=== PATIENT | female | born 1965 | race Caucasian/White ===

== ENCOUNTER 2020-06-19 06:43 | Outpatient (CLI) | payer OTHER, SELFPAY ==
[2020-06-19 07:37] LABS: Hematocrit 38.4 % (37.0-47.0); Hemoglobin 12.4 g/dL (12.0-15.0); Mean Corpuscular HGB Conc 32.3 g/dl (32-36); Mean Corpuscular Hemoglobin 27.4 pg (26-34); Mean Corpuscular Volume 84.8 fl (80-100); Mean Platelet Volume 10.3 fl (7.4-10.4); Platelet Count Result 407 k/mm3 (150-375); Red Blood Count 4.53 M/mm3 (4.2-5.4); Red Cell Distribution Width 14.1 % (11.5-14.5); White Blood Count 7.5 K/mm3 (4.5-10.0)
[2020-06-19 07:41] LABS: Alanine Aminotransferase 18 U/L (4-35); Albumin Level 3.8 g/dL (3.5-5.1); Alkaline Phosphatase 75 U/L (38-126); Anion Gap 5 mmol/L (8-16); Aspartate Amino Transferase 28 U/L (14-36); Bilirubin,Total 0.5 mg/dL (0.2-1.3); Blood Urea Nitrogen 11 mg/dL (7-17); Carbon Dioxide 34 mmol/L (22-30); Chloride 103 mmol/L (98-107); Cholesterol 228 mg/dL (0-200); Estimated Glomerular Filt Rate > 60; Glucose 104 mg/dL (65-105); HDL Direct 41 mg/dL; Potassium 4.6 mmol/L (3.4-5.0); Sodium 142 mmol/L (137-145); Triglycerides 151 mg/dL (<150)
[2020-06-19 07:52] LABS: LDL Cholesterol Direct 142 mg/dL
[2020-06-19 08:21] LABS: Creatinine Urine 63.1 mg/dL
[2020-06-19 08:25] LABS: MALB Creatinine Ratio 22.5 mg/g (0-30); Microalbumin Urine Random 14.2 mg/L (0-16.7)
[2020-06-19 08:50] LABS: Hemoglobin A1C 7.7 % (<5.7)
[2020-06-19 08:51] LABS: Vitamin D 25 Hydroxy < 12.8 ng/mL
[2020-06-19 23:08] LABS: Free T4 Free Thyroxine Reflex 0.64 ng/dL (0.78-2.19)
== END 2020-06-19 06:44 | disposition home or self-care (01) ==
LOC: ANHLAB 06:47
PROVIDERS: PCP Family Medicine; Visit Provider Family Medicine
DX: E11.9 Type 2 diabetes mellitus without complications (principal); R53.83 Other fatigue; E03.9 Hypothyroidism, unspecified; E78.2 Mixed hyperlipidemia; E55.9 Vitamin D deficiency, unspecified
CPT/HCPCS: 36415; 80053; 80061; 82043; 82306; 83036; 84439; 84443; 85027

== ENCOUNTER 2020-10-15 02:38 | Emergency (ER) | payer OTHER, SELFPAY ==
[2020-10-15 02:38] VITALS: BP 190/78; PULSE 83; RESP 14; TEMP 36.6; O2SAT 100
[2020-10-15 02:45] LABS: Glucose Point of Care 77 (65-105)
--- NOTE | 2020-10-15 03:09 | PC.NURSE ---
Pt. provided w/ sandwich an orange juice.
--- NOTE | 2020-10-15 03:16 | PC.NURSE ---
RN asked Pt. for urine sample. Pt. states she cannot go at this time.
[2020-10-15 03:21] LABS: Basophils Percent Auto 0.5 % (0.2-1.2); Eosinophils Absolute Auto 0.1 K/mm3 (0-0.3); Eosinophils Percent Auto 1.4 % (0-4.4); Hematocrit 40.7 % (37.0-47.0); Hemoglobin 13.5 g/dL (12.0-15.0); Immature Granulocyte Absolute 0.03 K/mm3 (0.00-0.031); Immature Granulocyte Percent A 0.4 % (0-0.5); Lymphocytes Absolute Auto 1.58 K/mm3 (0.9-3.2); Lymphocytes Percent Auto 18.7 % (18.3-44.2); Mean Corpuscular HGB Conc 33.2 g/dl (32-36); Mean Corpuscular Hemoglobin 27.8 pg (26-34); Mean Corpuscular Volume 83.9 fl (80-100); Monocytes Absolute Auto 0.7 K/mm3 (0.1-0.6); Monocytes Percent Auto 8.5 % (2.6-8.5); Neutrophils Percent Auto 70.5 % (45.5-73.1); Platelet Count Result 266 k/mm3 (150-375); Red Blood Count 4.85 M/mm3 (4.2-5.4); Red Cell Distribution Width 13.1 % (11.5-14.5); White Blood Count 8.4 K/mm3 (4.5-10.0)
[2020-10-15 03:34] LABS: Anion Gap 6 mmol/L (8-16); Blood Urea Nitrogen 16 mg/dL (7-17); Calcium 9.3 mg/dL (8.4-10.2); Carbon Dioxide 28 mmol/L (22-30); Chloride 106 mmol/L (98-107); Estimated Glomerular Filt Rate > 60; Glucose 71 mg/dL (65-105); Potassium 4.1 mmol/L (3.4-5.0); Sodium 140 mmol/L (137-145)
--- NOTE | 2020-10-15 03:42 | ED.GENADULT ---
HPI - General Adult General Chief complaint: Recheck/Abnormal Lab/Rx Stated complaint: hypoglycemia Time Seen by Provider: 10/15/20 02:59 History of Present Illness HPI narrative: Patient a 55-year-old female who presents emerged from with chief complaint of hypoglycemia. Patient has history of insulin-dependent diabetes and this evening woke up and had low blood sugars. Patient was seen by EMS and they were unable to get peripheral access in the field due to this they transported the patient to the emergency department while giving the patient glucagon in route. Patient currently is awake alert in no acute distress and is back to her neurological baseline. Patient reports she has been having episodes of hypoglycemia particularly at night whenever she is sleeping. Patient reports she has seen her primary care physician and they have reduced her dose of insulin recently. Related Data Home Medications Medication Instructions Recorded Confirmed atorvastatin 40 mg tablet 40 mg PO DAILY 03/12/20 losartan 50 mg tablet 50 mg PO DAILY 03/12/20 Allergies Allergy/AdvReac Type Severity Reaction Status Date / Time Penicillins Allergy Severe Rash Verified 10/15/20 03:16 Review of Systems Review of Systems: Narrative: A 10 system review of systems was completed on the patient and is negative except for what is stated in the HPI. Nursing and ancillary documentation was reviewed. [facility] [place] Past Medical History Medical History Allergic rhinitis Diabetes type 1, uncontrolled Diabetic neuropathy associated with type 1 diabetes mellitus Endometriosis determined by laparoscopy Hyperlipidemia due to type 1 diabetes mellitus Surgical History Surgical History History of partial thyroidectomy History of right oophorectomy Family History Family History Mother Hypertension Hyperlipidemia Father Heart disease Hypertension Hyperlipidemia Grandparent Heart disease Diabetes mellitus Hypertension Hyperlipidemia Glaucoma FH: cataracts Social History Social History Gender identity (if verbalized by the patient): Female Exam Narrative: Exam Narrative: GENERAL: Well-appearing, well-nourished, and in no acute distress. HEAD: Normocephalic, atraumatic. EYES: PERRLA and EOMI. ENT: Nares clear, no rhinorrhea or epistaxis. Mucous membranes moist. NECK: Supple. CHEST: Clear to auscultation. No respiratory distress. HEART: Regular rate and rhythm. No murmur heard. Normal peripheral pulses. ABDOMEN: Soft, nontender, nondistended, normal active bowel sounds. EXTREMITIES: Normal range of motion. No edema. SKIN: Warm, dry, no rash. NEURO: No focal deficits. Alert and oriented x3. PSYCH: Normal mood and affect. Course Course Emergency Course: Patient has been observed in the emergency department she was also given a snack tray and the patient has maintained euglycemia. Vital Signs Vital signs: Vital Signs Temperature 36.6 C 10/15/20 02:38 Pulse Rate 83 10/15/20 02:38 Respiratory Rate 14 10/15/20 02:38 Blood Pressure 190/78 H 10/15/20 02:38 Pulse Oximetry 100 10/15/20 02:38 Temperature 36.6 C 10/15/20 02:38 Pulse Rate 83 10/15/20 02:38 Respiratory Rate 14 10/15/20 02:38 Blood Pressure 190/78 H 10/15/20 02:38 Pulse Oximetry 100 10/15/20 02:38 Medical Decision Making Vital Signs Vital Signs: Vital Signs Temperature 36.6 C 10/15/20 02:38 Pulse Rate 83 10/15/20 02:38 Respiratory Rate 14 10/15/20 02:38 Blood Pressure 190/78 H 10/15/20 02:38 Pulse Oximetry 100 10/15/20 02:38 Temperature 36.6 C 10/15/20 02:38 Pulse Rate 83 10/15/20 02:38 Respiratory Rate 14 10/15/20 02:38 Blood Pressure 190/78 H 10/15/20 02:3
[2020-10-15 03:52] LABS: Glucose Point of Care 215 (65-105)
[2020-10-15 04:23] LABS: Add Urine Microscopic? YES; Appearance Urine Cloudy (Clear); Bacteria Urine Trace /hpf; Bilirubin Urine Negative (Negative); Blood Urine Negative (Negative); Color Urine Straw (Yellow); Glucose Urine UA Negative (Negative); Ketones Urine 1+ mg/dL (Negative); Leukocyte Esterase Ur Trace LEU/UL (Negative); Mucus Urine Rare /lpf; Nitrate Urine Negative (Negative); Protein Urine Negative (Negative); Specific Grav Ur 1.011 (1.001-1.035); Squamous Epithelial Cell Urine Few /hpf (Few); Urobilinogen Urine Negative mg/dL (<2.0)
[2020-10-15 05:00] VITALS: BP 123/87; PULSE 65; RESP 20; O2SAT 97
[2020-10-15] MEDS: CEPHALEXIN 500 MG CAPSULE PO (05:00)
== END 2020-10-15 05:00 | disposition home or self-care (01) ==
PROVIDERS: Emergency Provider Emergency Medicine; PCP Family Medicine
DX: E10.649 Type 1 diabetes mellitus with hypoglycemia without coma (principal); N39.0 Urinary tract infection, site not specified; E10.40 Type 1 diabetes mellitus with diabetic neuropathy, unspecified; N80.9 Endometriosis, unspecified; E78.5 Hyperlipidemia, unspecified; E89.0 Postprocedural hypothyroidism; Z79.4 Long term (current) use of insulin
CPT/HCPCS: 36415; 80048; 81001; 85025; 87086; 87088; 99283; A9270

== ENCOUNTER 2021-04-23 06:40 | Outpatient (CLI) | payer OTHER, SELFPAY ==
[2021-04-23 07:29] LABS: Hemoglobin A1C 8.1 % (<5.7)
[2021-04-23 07:35] LABS: Alanine Aminotransferase 20 U/L (4-35); Albumin Level 4.1 g/dL (3.5-5.1); Alkaline Phosphatase 134 U/L (38-126); Anion Gap 6 mmol/L (8-16); Aspartate Amino Transferase 21 U/L (14-36); Bilirubin,Total 0.3 mg/dL (0.2-1.3); Blood Urea Nitrogen 18 mg/dL (7-17); Calcium 9.8 mg/dL (8.4-10.2); Carbon Dioxide 26 mmol/L (22-30); Chloride 109 mmol/L (98-107); Cholesterol 191 mg/dL (0-200); Estimated Glomerular Filt Rate > 60; Glucose 163 mg/dL (65-110); HDL Direct 60 mg/dL; Potassium 4.3 mmol/L (3.4-5.0); Sodium 141 mmol/L (137-145); Triglycerides 54 mg/dL (<150)
[2021-04-23 07:45] LABS: LDL Cholesterol Direct 90 mg/dL
[2021-04-23 08:04] LABS: Thyroid Stimulating Hormone < 0.015 uIU/mL (0.465-4.680)
[2021-04-23 08:36] LABS: Free T4 Free Thyroxine 1.59 ng/mL (0.78-2.19)
== END 2021-04-23 06:41 | disposition home or self-care (01) ==
LOC: ANHLAB 06:42
PROVIDERS: PCP Family Medicine; Visit Provider Physician Assistant
DX: E03.9 Hypothyroidism, unspecified (principal); E11.9 Type 2 diabetes mellitus without complications; E78.5 Hyperlipidemia, unspecified; I10 Essential (primary) hypertension
CPT/HCPCS: 36415; 80053; 80061; 83036; 84439; 84443

== ENCOUNTER 2021-10-01 06:57 | Outpatient (CLI) | payer OTHER, SELFPAY ==
[2021-10-01 07:33] LABS: Hemoglobin A1C 7.3 % (<5.7)
[2021-10-01 07:49] LABS: Alanine Aminotransferase 24 U/L (4-35); Albumin Level 4.2 g/dL (3.5-5.1); Alkaline Phosphatase 116 U/L (38-126); Anion Gap 6 mmol/L (8-16); Aspartate Amino Transferase 35 U/L (14-36); Bilirubin,Total 0.4 mg/dL (0.2-1.3); Blood Urea Nitrogen 15 mg/dL (7-17); Calcium 9.5 mg/dL (8.4-10.2); Carbon Dioxide 30 mmol/L (22-30); Chloride 106 mmol/L (98-107); Estimated Glomerular Filt Rate > 60; Glucose 111 mg/dL (65-110); Potassium 4.5 mmol/L (3.4-5.0); Sodium 142 mmol/L (137-145)
[2021-10-01 08:13] LABS: Thyroid Stimulating Hormone Reflex < 0.015 uIU/mL (0.465-4.68)
[2021-10-01 08:43] LABS: Creatinine Urine 92.8 mg/dL
[2021-10-01 09:05] LABS: MALB Creatinine Ratio < 6.5 mg/g (0-30); Microalbumin Urine Random < 6.0 mg/L (0-16.7)
[2021-10-01 10:09] LABS: Free T4 Free Thyroxine Reflex 1.83 ng/dL (0.78-2.19)
[2021-10-01 12:01] LABS: Total Triiodothyronine (T3) 1.57 NG/ML (0.97-1.69)
== END 2021-10-01 06:58 | disposition home or self-care (01) ==
PROVIDERS: PCP Family Medicine; Visit Provider Family Medicine
DX: E03.9 Hypothyroidism, unspecified (principal); E10.65 Type 1 diabetes mellitus with hyperglycemia
CPT/HCPCS: 36415; 80053; 82043; 83036; 84439; 84443; 84480

== ENCOUNTER 2022-04-08 06:50 | Outpatient (CLI) | payer OTHER, SELFPAY ==
[2022-04-08 08:08] LABS: Alanine Aminotransferase 21 U/L (6-35); Alkaline Phosphatase 117 U/L (38-126); Anion Gap 4 mmol/L (8-16); Aspartate Amino Transferase 23 U/L (14-36); Bilirubin,Total 0.5 mg/dL (0.2-1.3); Blood Urea Nitrogen 14 mg/dL (7-17); Calcium 9.5 mg/dL (8.4-10.2); Carbon Dioxide 31 mmol/L (22-30); Chloride 104 mmol/L (98-107); Cholesterol 181 mg/dL (0-200); Estimated Glomerular Filt Rate > 60; Glucose 191 mg/dL (65-110); HDL Direct 57 mg/dL; Potassium 5.1 mmol/L (3.4-5.0); Sodium 139 mmol/L (137-145); Triglycerides 68 mg/dL (<150)
[2022-04-08 08:10] LABS: Hemoglobin A1C 8.5 % (<5.7)
[2022-04-08 08:20] LABS: LDL Cholesterol Direct 76 mg/dL
[2022-04-08 08:41] LABS: Thyroid Stimulating Hormone < 0.015 uIU/mL (0.465-4.680)
== END 2022-04-08 06:51 | disposition home or self-care (01) ==
PROVIDERS: PCP Family Medicine; Visit Provider Family Medicine
DX: E78.2 Mixed hyperlipidemia (principal); E03.9 Hypothyroidism, unspecified; E11.9 Type 2 diabetes mellitus without complications
CPT/HCPCS: 36415; 80053; 80061; 83036; 84443

== ENCOUNTER 2022-09-13 06:50 | Outpatient (CLI) | payer OTHER, SELFPAY ==
[2022-09-13 07:28] LABS: Hemoglobin A1C 10.1 % (<5.7)
[2022-09-13 07:32] LABS: Alanine Aminotransferase 22 U/L (6-35); Albumin Level 4.2 g/dL (3.5-5.1); Alkaline Phosphatase 100 U/L (38-126); Anion Gap 5 mmol/L (8-16); Aspartate Amino Transferase 24 U/L (14-36); Bilirubin,Total 0.3 mg/dL (0.2-1.3); Blood Urea Nitrogen 14 mg/dL (7-17); Calcium 9.1 mg/dL (8.4-10.2); Carbon Dioxide 31 mmol/L (22-30); Chloride 102 mmol/L (98-107); Cholesterol 215 mg/dL (0-200); Estimated Glomerular Filt Rate > 60; Glucose 108 mg/dL (65-110); HDL Direct 68 mg/dL; Potassium 4.3 mmol/L (3.4-5.0); Sodium 138 mmol/L (137-145); Triglycerides 79 mg/dL (<150)
[2022-09-13 07:42] LABS: LDL Cholesterol Direct 95 mg/dL
[2022-09-13 08:04] LABS: Vitamin D 25 Hydroxy 32.6 ng/mL
[2022-09-13 11:45] LABS: Total Triiodothyronine (T3) 1.05 NG/ML (0.97-1.69)
== END 2022-09-13 06:51 | disposition home or self-care (01) ==
LOC: ANHLAB 06:51
PROVIDERS: PCP Family Medicine; Visit Provider Physician Assistant
DX: E11.9 Type 2 diabetes mellitus without complications (principal); E55.9 Vitamin D deficiency, unspecified; E78.2 Mixed hyperlipidemia; E03.9 Hypothyroidism, unspecified
CPT/HCPCS: 36415; 80053; 80061; 82306; 83036; 84439; 84443; 84480

== ENCOUNTER 2022-12-21 07:15 | Outpatient (CLI) | payer OTHER, SELFPAY ==
[2022-12-21 07:59] LABS: Alanine Aminotransferase 24 U/L (6-35); Albumin Level 4.2 g/dL (3.5-5.1); Alkaline Phosphatase 112 U/L (38-126); Anion Gap 4 mmol/L (8-16); Aspartate Amino Transferase 25 U/L (14-36); Bilirubin,Total 0.5 mg/dL (0.2-1.3); Blood Urea Nitrogen 15 mg/dL (7-17); Carbon Dioxide 33 mmol/L (22-30); Chloride 103 mmol/L (98-107); Estimated Glomerular Filt Rate > 60; Glucose 161 mg/dL (65-110); Hemoglobin A1C 8.9 % (<5.7); Potassium 4.2 mmol/L (3.4-5.0); Sodium 140 mmol/L (137-145)
[2022-12-21 08:59] LABS: Creatinine Urine 93.1 mg/dL
[2022-12-21 09:03] LABS: MALB Creatinine Ratio 9.1 mg/g (0-30); Microalbumin Urine Random 8.5 mg/L (0-16.7)
[2022-12-21 10:47] LABS: Total Triiodothyronine (T3) 1.02 NG/ML (0.97-1.69)
== END 2022-12-21 07:16 | disposition home or self-care (01) ==
LOC: ANHLAB 07:17
PROVIDERS: PCP Family Medicine; Visit Provider Family Medicine
DX: E11.9 Type 2 diabetes mellitus without complications (principal); E03.9 Hypothyroidism, unspecified
CPT/HCPCS: 36415; 80053; 82043; 83036; 84439; 84443; 84480

== ENCOUNTER 2023-04-07 07:05 | Outpatient (CLI) | payer OTHER, SELFPAY ==
[2023-04-10 19:53] LABS: Glutamic acid decarboxylase AA >250 IU/mL (<5)
== END 2023-04-07 07:06 | disposition home or self-care (01) ==
PROVIDERS: PCP Family Medicine; Visit Provider Internal Medicine
DX: E10.40 Type 1 diabetes mellitus with diabetic neuropathy, unspecified (principal)
CPT/HCPCS: 36415; 84681; 86341

== ENCOUNTER 2023-09-20 09:37 | Outpatient (CLI) | payer OTHER, SELFPAY ==
[2023-09-20 20:58] LABS: Anion Gap 12 mmol/L (8-16); Blood Urea Nitrogen 29 mg/dL (7-17); Calcium 9.6 mg/dL (8.4-10.2); Carbon Dioxide 28 mmol/L (22-30); Chloride 96 mmol/L (98-107); Estimated Glomerular Filt Rate 51; Glucose 193 mg/dL (65-110); HDL Direct 51 mg/dL; Potassium 4.1 mmol/L (3.4-5.0); Sodium 136 mmol/L (137-145)
[2023-09-20 21:00] LABS: Creatinine Urine 151.7 mg/dL
[2023-09-20 21:04] LABS: MALB Creatinine Ratio 4.7 mg/g (0-30); Microalbumin Urine Random 7.2 mg/L (0-16.7)
[2023-09-20 21:12] LABS: LDL Cholesterol Direct 93 mg/dL
[2023-09-20 21:29] LABS: Thyroid Stimulating Hormone 0.019 uIU/mL (0.465-4.680)
[2023-09-20 21:56] LABS: Free T4 Free Thyroxine 2.82 ng/mL (0.78-2.19)
== END 2023-09-20 09:38 | disposition home or self-care (01) ==
LOC: ANHWCLAB 09:38
PROVIDERS: PCP Family Medicine; Visit Provider Internal Medicine Endocrinology, Diabetes & Metabolism
DX: E10.65 Type 1 diabetes mellitus with hyperglycemia (principal); E03.9 Hypothyroidism, unspecified
CPT/HCPCS: 36415; 80048; 82043; 82607; 83718; 83721; 84439; 84443

== ENCOUNTER 2023-10-27 07:05 | Outpatient (CLI) | payer OTHER, SELFPAY ==
[2023-10-27 08:01] LABS: Thyroid Stimulating Hormone 0.932 uIU/mL (0.465-4.680)
[2023-10-27 08:13] LABS: Free T4 Free Thyroxine 1.57 ng/mL (0.78-2.19)
== END 2023-10-27 07:06 | disposition home or self-care (01) ==
LOC: ANHLAB 07:06
PROVIDERS: PCP Family Medicine; Visit Provider Internal Medicine Endocrinology, Diabetes & Metabolism
DX: E03.9 Hypothyroidism, unspecified (principal)
CPT/HCPCS: 36415; 84439; 84443

== ENCOUNTER 2024-05-31 06:58 | Outpatient (CLI) | payer OTHER, SELFPAY ==
[2024-05-31 07:41] LABS: Alanine Aminotransferase 16 U/L (6-35); Albumin Level 4.1 g/dL (3.5-5.1); Alkaline Phosphatase 108 U/L (38-126); Anion Gap 4 mmol/L (4-12); Aspartate Amino Transferase 20 U/L (14-36); Bilirubin,Total 0.4 mg/dL (0.2-1.3); Blood Urea Nitrogen 17 mg/dL (7-17); Calcium 9.2 mg/dL (8.4-10.2); Carbon Dioxide 31 mmol/L (22-30); Chloride 98 mmol/L (98-107); Cholesterol 182 mg/dL (0-200); Estimated Glomerular Filt Rate > 60; Glucose 236 mg/dL (65-110); HDL Direct 68 mg/dL; Potassium 4.9 mmol/L (3.4-5.0); Sodium 133 mmol/L (137-145); Triglycerides 70 mg/dL (<150)
[2024-05-31 07:51] LABS: LDL Cholesterol Direct 88 mg/dL
[2024-05-31 09:05] LABS: MALB Creatinine Ratio 11.6 mg/g (0-30); Microalbumin Urine Random 7.1 mg/L (0-16.7)
[2024-05-31 09:38] LABS: Free T4 Free Thyroxine 1.24 ng/mL (0.78-2.19); Vitamin D 25 Hydroxy 20.1 ng/mL
== END 2024-05-31 06:59 | disposition home or self-care (01) ==
LOC: ANHLAB 06:59
PROVIDERS: PCP Family Medicine; Visit Provider Internal Medicine Endocrinology, Diabetes & Metabolism
DX: E03.9 Hypothyroidism, unspecified (principal); E55.9 Vitamin D deficiency, unspecified; N18.9 Chronic kidney disease, unspecified; E10.65 Type 1 diabetes mellitus with hyperglycemia; E78.5 Hyperlipidemia, unspecified
CPT/HCPCS: 36415; 80053; 80061; 82043; 82306; 82607; 84439; 84443